=== PATIENT | female | born 1970 | race African-American/Black ===

== ENCOUNTER 2022-01-08 20:14 | Emergency (ER) | payer BC ==
[~2022-01-08] VITALS: Ht 165.1 cm; Wt 68.0 kg
[2022-01-08 20:23] VITALS: BP_SYST 115
[2022-01-08 21:35] VITALS: BP_SYST 115
== END 2022-01-08 21:35 | disposition home or self-care (01) ==
LOC: SED 20:14
DX: S50.11XA Contusion of right forearm, initial encounter (principal); W22.8XXA Striking against or struck by other objects, initial encounter; Y93.89 Activity, other specified; Y92.89 Other specified places as the place of occurrence of the external cause; Y99.8 Other external cause status
CPT/HCPCS: 73090; 99283